=== PATIENT | female | born 1980 | race Caucasian/White ===

== ENCOUNTER 2025-10-12 23:34 | Emergency (ER) | payer BC ==
[~2025-10-12] VITALS: Ht 152.4 cm; Wt 68.9 kg
[2025-10-13] MEDS: IV NS 0.9% 1,000 ML BAG IV ONE ×2 (00:07→00:51)
[2025-10-13] MEDS ORDERED: IOHEXOL-300 100 ML VIAL IV ONE (00:20)
[2025-10-13] MEDS ORDERED: CT SWABBABLE VALVE TRANS SET 1 EA INFUS.SET MC ONE (00:21)
[2025-10-13] MEDS ORDERED: IV NS 0.9% 250 ML IV ONE (00:21)
[2025-10-13 00:28] LABS: PLATELET COUNT (AUTO) 483 K/uL (150-450); RED BLOOD CELL COUNT(AUTO) 4.41 MIL/uL (4.0-5.2); RED CELL DISTRIBUTION WIDTH 16.7 % (11.5-15.0); WHITE BLOOD COUNT (AUTO) 5.4 K/uL (4.3-11.0)
[2025-10-13 00:29] LABS: APPEARANCE,URINE CLEAR (CLEAR); BLOOD, URINE NEGATIVE Ery/uL (NEGATIVE); LEUKOCYTE ESTERASE ,URINE NEGATIVE (NEGATIVE); NITRITE, URINE NEGATIVE (NEGATIVE); UGLUCOSE NEGATIVE (NEGATIVE)
[2025-10-13 00:39] LABS: CALCIUM, SERUM 8.7 mg/dL (8.5-10.1); CREATININE 0.7 mg/dL (0.6-1.3); SODIUM SERUM 139.0 mmol/L (136-145); UREA NITROGEN, BLOOD 13.0 mg/dL (7-18)
[2025-10-13 00:45] LABS: ASPARTATE AMINOTRANSFERASE 13.0 U/L (15-37); INR 0.98 (0.91-1.10); TOTAL PROTEIN, SERUM 7.6 g/dL (6.4-8.2)
[2025-10-13] MEDS ORDERED: ONDANSETRON HCL/PF 4 MG/2 ML VIAL ONE (00:48)
[2025-10-13] MEDS ORDERED: KETOROLAC TROMETHAMINE INJ 30 MG/ML VIAL ONE (00:48)
[2025-10-13] MEDS: KETOROLAC TROMETHAMINE 15 MG/ML VIAL IV ONE (00:52)
[2025-10-13] MEDS: ONDANSETRON HCL/PF - ER 4 MG/2 ML VIAL IV ONE (00:52)
[2025-10-13] MEDS: ONDANSETRON HCL/PF 4 MG/2 ML VIAL IVP ONE (00:52)
[2025-10-13] MEDS ORDERED: ONDA4TAB5 PO (02:03)
[2025-10-13] MEDS ORDERED: IBUP-1490 PO (02:03)
[2025-10-13 02:12] VITALS: BP 121/86; TEMP 98; O2SAT 98
== END 2025-10-13 02:12 | disposition home or self-care (01) ==
LOC: ER 23:37
DX: R10.30 Lower abdominal pain, unspecified (principal); R11.10 Vomiting, unspecified; Z98.891 History of uterine scar from previous surgery
CPT/HCPCS: 99285; 74177; 96374; 96361; 96375; 85025; 80048; 83690; 80076; 81003; 36415; 85730; J1885; J2405; J7030 ×2; J7050; Q9967